=== PATIENT | female | born 1990 | race African-American/Black ===

== ENCOUNTER 2017-05-26 11:21 | Emergency (ER) | payer OTHER ==
[2017-05-26 11:25] VITALS: BP 126/84
[2017-05-26] MEDS ORDERED: predniSONE 20 MG TABLET PO ONE (12:00)
--- NOTE | 2017-05-26 12:01 | PHYS DOC ---
Past Medical History Past Medical History: Other Additional Past Medical Histor: SEASONAL ALLERGIES Past Surgical History: Other Additional Past Surgical Histo: LEFT HAND Alcohol Use: Rarely Drug Use: None Adult General Chief Complaint Chief Complaint: EYE PROBLEMS HPI HPI Patient is a 27 year old female presents to the emergency department stating that she's had a 3 day history of bilateral eye swelling. She denies any drainage or discharge coming from the site. She states that she does have seasonal allergies however she states that her eyes are itching and burning. She denies any cough congestion fever, chills or any nausea vomiting. She states that she has been taking Benadryl however she states that this has not been helping with the symptoms Review of Systems Review of Systems Constitutional: Denies fever or chills [] Eyes: Denies change in visual acuity, redness, or eye pain [] HENT: Denies nasal congestion or sore throat [] Respiratory: Denies cough or shortness of breath [] Cardiovascular: No additional information not addressed in HPI [] GI: Denies abdominal pain, nausea, vomiting, bloody stools or diarrhea [] : Denies dysuria or hematuria [] Musculoskeletal: Denies back pain or joint pain [] Integument: Denies rash or skin lesions [] Neurologic: Denies headache, focal weakness or sensory changes [] Endocrine: Denies polyuria or polydipsia [] Current Medications Current Medications Current Medications Medications (Trade) Dose Ordered Sig/[facility] Start Time Stop Time Status Last Admin Dose Admin Prednisone (Prednisone) 40 mg 1X ONCE 05/26/17 12:00 05/26/17 12:01 DC 05/26/17 12:00 40 MG Allergies Allergies Allergies Coded Allergies Type Severity Reaction Last Updated Verified No Known Drug Allergies 08/28/15 No Physical Exam Physical Exam Constitutional: Well developed, well nourished, no acute distress, non-toxic appearance. [] HENT: Normocephalic, atraumatic, bilateral external ears normal, oropharynx moist, no oral exudates, nose normal. Eyes: PERRLA, EOMI, conjunctiva normal, no discharge. Patient with bilateral eye swelling. No drainage or discharge coming from the eye.. Neck: Normal range of motion, no tenderness, supple, no stridor. [] Cardiovascular:Heart rate regular rhythm, no murmur [] Lungs & Thorax: Bilateral breath sounds clear to auscultation [] Skin: Warm, dry, no erythema, no rash. [] Extremities: No tenderness, no cyanosis, no clubbing, ROM intact, no edema. [] Neurologic: Alert and oriented X 3, normal motor function, normal sensory function, no focal deficits noted. [] Psychologic: Affect normal, judgement normal, mood normal. [] Current Patient Data Vital Signs Vital Signs Date Time Temp Pulse Resp B/P (MAP) Pulse Ox O2 Delivery O2 Flow Rate FiO2 05/26/17 11:25 98.0 66 18 98 Room Air 98.0 EKG EKG [] Radiology/Procedures Radiology/Procedures [] Course & Med Decision Making Course & Med Decision Making Pertinent Labs and Imaging studies reviewed. (See chart for details) Use Zyrtec or Claritin on a daily basis when she has completed the use of the Benadryl for the next 5 days. Patient will also be encouraged to keep the eyes cool to prevent itching and irritation this will also help with swelling. Also sleep with head of the bed elevated. Patient will be discharged home with stable condition signs symptoms to return back to emergency department as been provided. All questions and concerns been answered. [] Dragon Disclaimer Dragon Disclaimer This electronic medical record was generated, in whole or in part, using a voice recognition dictation system. Departure Departure Impression: Primary Impression: Eye swelling, bilateral Disposition: 01 HOME, SELF-CARE Condition: STABLE Referrals: NO PCP (PCP) Patient Instructions: Allergies, Generic Additional Instructions: Activity as tolerated. Benadryl 25 mg every 6 hours as needed for itching or irritation. This medication will cause drowsiness do not take any be alert and oriented. Take this medication for the next 5 days. Prednisone as prescribed. Pepcid 1 tablet twice day for the next 7 days. Keep the eyes: This will help with swelling and itching. Sleep with your head of the bed elevated. Follow-up with the primary care physician in the next week. Return back to emergency prior signs symptoms of become worse. Scripts Prednisone (PREDNISONE) 20 Mg Tablet 40 MG PO DAILY for 7 Days, #14 TAB Prov: PETERSON LANDRY APRN 05/26/17 PETERSON LANDRY APRN May 26, 2017 12:01
[2017-05-26] MEDS ORDERED: PRED20TA PO (12:13)
== END 2017-05-26 12:27 | disposition home or self-care (01) ==
LOC: ER 11:21
DX: H57.8 Other specified disorders of eye and adnexa (principal)
CPT/HCPCS: 99283; J7512